=== PATIENT | male | born 1985 | race Asian ===

== ENCOUNTER 2017-08-19 05:55 | Emergency (ER) | payer BC, SELFPAY ==
[2017-08-19 05:56] VITALS: BP 139/92; PULSE 84; RESP 17; TEMP 36.5; O2SAT 100; BMI 19.0
--- NOTE | 2017-08-19 06:17 | RAD_ITS ---
STUDY: X-RAY CHEST REASON FOR EXAM: Male, 31 years old. Chest pain TECHNIQUE: PA and lateral COMPARISON: August 13, 2017 FINDINGS: The lungs are clear and expanded. There is no demonstrated pleural abnormality. Normal size heart. Normal mediastinum and jo. Normal visualized pulmonary arteries. Normal visualized aortic arch and descending thoracic aorta. Normal visualized thoracic spine. Normal visualized ribs, clavicles, and shoulders. There is no demonstrated abnormality of the visualized soft tissue structures of the upper abdomen. RAD/Chest PA and Lateral IMPRESSION: Normal x-ray examination of the chest. Electronically Signed: Mauricio Rajput MD at 7:07 EST , Service support ,
--- NOTE | 2017-08-19 06:17 | EKG12_ITS ---
Test Reason : CP Blood Pressure : / mmHG Vent. Rate : 084 BPM Atrial Rate : 084 BPM P-R Int : 170 ms QRS Dur : 088 ms QT Int : 344 ms P-R-T Axes : 076 078 060 degrees QTc Int : 406 ms Normal sinus rhythm ST segment abnormality: consider repolarization variant; pericarditis Confirmed by JOI TORRES, MARLIN ([id number]), editorial clerk DEON BLACKBURN ([id number] on 08/22/2017 11:20:05 AM Referred By: Confirmed By:MARLIN TAMEZ MD
--- NOTE | 2017-08-19 06:21 | ED.DCSUM_ITS ---
- ER Visit Summary Date of Service: 08/19/17 Chief Complaint: [Chest pain] History of Present Illness: The patient is a 31 M [who presents the emergency department with chest pain for the last for 5 days. It has been continuous over the last 2 days. He was seen here on Saturday with it and was discharged home. He continues to have the pain in this morning he states it was unbearable. It is in his left chest it does not go anywhere else. He has no associated shortness of breath no fever no cough it is worse when leaning forward. He does smoke he does drink on known amount of vodka daily. He has no other medical problems he is followed by Dr. Ferreira he rates the pain as a 7 or 8 out of 10 right now. He is not lightheaded and dizzy and not any recent upper respiratory infections Physical Examination: [] Blood pressure 139/92 other vitals within normal limits WN WD NAD PERRL EOMI MMM NECK supple and nontender, no masses RRR no murmur rub or gallop, no peripheral edema, symmetric radial pulses CTAB no respiratory distress ABDOMEN is soft and nontender, normal bowel sounds, no distension, no rebound or guarding SKIN is warm and dry no rashes Alert and Oriented x3, CN II-XII in tact, no motor or sensory deficits, gait normal No lymphadenopathy Test Results: [] Emergency Department Course and Treatment: [EKG is sinus at a rate of 84 with benign-appearing upsloping ST elevation in diffuse leads. D-dimer is normal troponin is normal workup is otherwise unremarkable. Do think this represents noncardiac chest pain. There is no evidence of acute emergent cause at this time. I gave the patient careful precautions for which she return and he will follow-up with his primary care doctor] Treatment Plan: [] Disposition: [disCharge] Impression: [Chest pain] This note was generated with [employer] dictation software. It may contain incorrect words, spelling, and punctuation that were not noted in review of the chart prior to signing ED Disposition - Plan for ED Patient: Disposition: Home or Assisted Living Chief Complaint: Chest Pain Instructions: ED Chest Pain Atypical Unkn Cause Prescriptions: Omeprazole 20 mg PO DAILY #30 tablet. Referrals: Jaylen Hoyt MD [Primary Care Provider] - 3-5 Days Additional Instructions: avoid alcohol
[2017-08-19 06:37] LABS: Absolute Lymphocyte Count 3.02 X10^3/ul (0.83-4.51); Basophil# 0.02 X10^3/uL; Basophil% 0.3 % (0-1); Hematocrit 44.7 % (40-54); Hemoglobin 15.8 g/dl (13.0-16.5); Lymphocyte # 3.02 X10^3/ul (4.0); Lymphocyte % 44.6 % (19-41); Mean Corp Hgb Conc 35.3 g/gl (32-36); Mean Corpuscular Hgb 31.9 pg (27.0-32.0); Mean Corpuscular Volume 90.3 fL (80-94); Mean Platelet Vol. 9.1 fl (6.2-12.0); Monocyte# 0.52 X10^3/uL; Monocyte% 7.7 % (0-10); Neutrophil % 44.3 % (47-70); Platelet Count 221 K/mm3 (150-450); RBC Distribution Width CV 11.8 % (11.6-14.6); RBC Distribution Width SD 38.6 fl (35.1-43.9); Red Blood Count 4.95 M/mm3 (4.6-6.2); White Blood Count 6.8 K/mm3 (4.4-11.0)
[2017-08-19 06:43] LABS: Anion Gap 10 (5-15); BUN 23 mg/dL (7-18); Calcium,Total 8.1 mg/dL (8.5-10.1); Chloride 108 mmol/L (98-107); Creatinine, Serum 0.85 mg/dL (0.70-1.30); EST Glomerular Filtration Rate 112 mL/min (>60); Est Glom Filt Rate - Afr Amer 135 mL/min (>60); Estimated Creatinine Clearance 90.23 ml/min; Glucose 117 mg/dL (70-110); Potassium 3.8 mmol/L (3.5-5.1); Sodium Level 142 mmol/L (136-145)
[2017-08-19 06:46] VITALS: O2SAT 100
[2017-08-19] MEDS: Ketorolac 30 MG/ML Syringe IV (06:46)
[2017-08-19] MEDS: Mag Hydrox/Al Hydrox/Simeth 30 ML UDC PO (06:49)
[2017-08-19 06:52] VITALS: BP 134/80; PULSE 94; RESP 15; O2SAT 99
[2017-08-19 07:01] VITALS: PULSE 106; RESP 14; O2SAT 100
[2017-08-19 07:16] LABS: D-Dimer Quantitative (DVT/PE) < 0.27 FEU/ug/m (0.27-0.49)
[2017-08-19 07:25] LABS: POSITIVE COUNT NO; POSITIVE DIFFERENTIAL NO; POSITIVE MORPHOLOGY NO
--- NOTE | 2017-08-19 07:36 | ED.DEP ---
ED Disposition - Plan for ED Patient: Chief Complaint: Chest Pain Instructions: ED Chest Pain Atypical Unkn Cause Prescriptions: Omeprazole 20 mg PO DAILY #30 tablet. Referrals: Jaylen Hoyt MD [Primary Care Provider] - 3-5 Days Additional Instructions: avoid alcohol
[2017-08-19 07:49] LABS: Erythrocyte Sedimentation Rate 1 mm/hr (0-15)
[2017-08-19 07:57] VITALS: BP 127/69; PULSE 74; RESP 16; O2SAT 99
== END 2017-08-19 07:58 | disposition home or self-care (01) ==
LOC: ED 06:39
PROVIDERS: Emergency Provider Emergency Medicine; Family Provider Family Medicine; PCP Family Medicine
DX: R07.9 Chest pain, unspecified (principal); Z72.89 Other problems related to lifestyle; Z72.0 Tobacco use
CPT/HCPCS: 71046; 80048; 84484; 85025; 85379; 85652; 93005; 96374; 99285

== ENCOUNTER 2022-02-13 14:28 | Emergency (ER) | payer BC, SELFPAY ==
[2022-02-13 14:30] VITALS: BP 138/90; PULSE 120; RESP 16; TEMP 38.1; O2SAT 96; BMI 18.9
[2022-02-13 14:33] VITALS: BP 138/90; PULSE 120; RESP 16; TEMP 38.1; O2SAT 96
--- NOTE | 2022-02-13 15:15 | ED.VIS.GI ---
HPI HPI - GI History of Present Illness Chief Complaint: Diarrhea Informant: patient Abdominal Pain/Flank Pain Onset: Yesterday Context: Gradual Onset Timing: Continuous Quality: - (Pressure) Location: RLQ and LLQ Worsened by: Nothing Relieved by: Nothing Nausea/Vomiting/Emesis GI Symptom: Negative for Nausea or Vomiting Diarrhea/Melena/Hematochezia GI Symptom: Positive for Diarrhea; Negative for Melena or Hematochezia Associated Symptoms Associated Symptoms: Negative for Dysuria, Frequency or Hematuria Narrative Narrative: Patient presents with diarrhea that has been constant for the past 2 weeks. Patient states he was diagnosed with C. difficile 2 weeks ago and was started on antibiotics at that time. Patient states that he has been noncompliant with his antibiotics. Patient states he started taking the antibiotics initially but then missed several doses. Patient states he recently restarted his antibiotics with no improvement of his diarrhea. Patient admits to body aches and muscle aches. Patient admits to low-grade fever and chills. Patient denies any nausea or vomiting. Patient admits to some pressure in his lower abdomen. Patient denies any urinary complaints. PFSH PFSH Home Medications vancomycin 125 mg capsule (Vancocin) 125 mg PO Q6H #4 caps 02/13/22 [Rx Last Taken Unknown] Allergy/AdvReac Type Severity Reaction Status Date / Time No Known Allergies Allergy Verified 02/13/22 14:33 Surgical History (Updated 02/13/22 @ 15:[address] Pravin Su DO) History of repair of congenital cleft palate History of tympanoplasty Social History Smoking Status: Current every day smoker tobacco type: cigarettes ROS ROS ED Constitutional Constitutional ED: Reports chills and fever(s) Eyes Eyes: Denies blurry vision or change in vision ENT ENT ED: Denies rhinorrhea or sore throat Cardiovascular Cardiovascular: Denies chest pain or palpitations Respiratory/Chest Respiratory/Chest: Denies cough or dyspnea Gastrointestinal Gastrointestinal: Reports abdominal pain and diarrhea; Denies nausea or vomiting Genitourinary Genitourinary ED: Denies dysuria or hematuria Musculoskeletal Musculoskeletal: Reports back pain and myalgias Integumentary Denies abscess or rash Neurologic Neurologic: Denies headache(s) or weakness Allergic/Immunologic Allergic/Immunologic ED: Denies mouth swelling or urticaria EXAM Physical Exam Const Vital Signs: 02/13/22 14:30 02/13/22 14:33 Temperature 100.6 F H 100.6 F H Temperature Source Temporal Temporal Pulse Rate 120 H 120 H Respiratory Rate 16 16 Blood Pressure 138/90 H 138/90 H Blood Pressure Mean 106 Pulse Ox 96 96 Oxygen Delivery Method Room Air Room Air Positive well nourished and well developed General Appearance ED: well developed and NAD HEENT Reports moist mucous membranes Neck supple and no JVD Resp normal respiratory effort and clear to auscultation bilaterally Cardio regular rate, regular rhythm and no murmurs GI normal to inspection, nondistended, normoactive bowel sounds Palpation: soft and tender LLQ, RLQ and suprapubic; Negative for guarding or rebound tenderness present Extremity normal to inspection General Extremety ED: Negative for edema or tenderness General Extremity: Negative for edema Neuro oriented x3, CN's II-XII intact bilaterally and no sensory deficits noted Sensorium / Orientation: alert Motor Exam: strength 5/5 throughout Psych mental status grossly normal Skin no rashes or lesions noted MDM MDM MDM Narrative Medical decision making narrative: Patient was given IV fluids. Patient was given a dose of p.o. vancomycin here. CBC shows a white blood cell count of 3.3. Platelets were slightly low at 147. Comprehensive metabolic profile was within normal limits. Urinalysis does not show any evidence of urinary tract infection. Patient was given a prescription for 24 hours worth of p.o. vancomycin. Patient has an appoint with his primary care physician tomorrow. Patient was instructed to follow-up with this as scheduled. Patient understood and was agreeable with the plan. All questions were answered. Lab Data Attestation: I reviewed the patient's lab results. Labs: Laboratory Results - last 24 hr 02/13/22 02/13/22 02/13/22 15:45 15:45 15:55 WBC 3.3 L RBC 4.84 Hgb 15.0 Hct 42.8 MCV 88.4 MCH 31.0 MCHC 35.0 RDW Std Deviation 36.7 RDW Coeff of Arnold 11.5 L Plt Count 147 L MPV 9.2 Immature Gran % (Auto) 0.300 Neut % (Auto) 65.6 Lymph % (Auto) 16.0 L [place] % (Auto) 17.2 H Eos % (Auto) 0.6 Baso % (Auto) 0.3 Absolute Neuts (auto) 2.1 Absolute Lymphs (auto) 0.52 L Nucleated RBC % 0 Differential Comment SEE COMMENT Diff Path Review May foll Platelet Estimate ADEQUATE RBC Morphology N CHROM Anisocytosis RARE Sodium 137 Potassium 3.8 Chloride 105 Carbon Dioxide 26.0 Anion Gap 6 BUN 16 Creatinine 1.10 Estim Creat Clear Calc 64.34 Est GFR (MDRD) Af Amer 98 Est GFR (MDRD) Non-Af 81 BUN/Creatinine Ratio 14.5 Glucose 95 Calcium 8.7 Total Bilirubin 0.30 AST 28 ALT 51 Alkaline Phosphatase 85 Total Protein 6.7 Albumin 3.8 Globulin 2.9 Albumin/Globulin Ratio 1.3 Urine Color Yellow Urine Clarity Sl. Cloudy Urine pH 6.5 Ur Specific [place] 1.020 Urine Protein 15 H Urine Glucose (UA) Normal Urine Ketones Negative Urine Occult Blood Negative Urine Nitrite Negative Urine Bilirubin Negative Urine Urobilinogen Normal Ur Leukocyte Esterase Negative Urine RBC 0 SEEN Urine WBC 0-5 SEEN Ur Squamous Epith Cells 0 SEEN Urine Bacteria 2+ Urine Mucus 0 SEEN Discharge Plan Triage Chief Complaint: Diarrhea ED Provider: Pravin Su Dx/Rx/DC Orders Clinical Impression: Diarrhea, History of Clostridium difficile infection Instructions: Clostridium Difficile Infection, ED Diarrhea, Bacterial (Adult) Prescriptions: New vancomycin [Vancocin] 125 mg capsule 125 mg PO Q6H Qty: 4 0RF Primary Care Provider: Jaylen Hoyt Referrals: Jaylen Hoyt MD [Primary Care Provider] - [facility] appointment Disposition Disposition: Home, Self Care
[2022-02-13] MEDS: 0.9% Normal Saline 1,000 ML 1000 ML IV (15:47)
[2022-02-13 16:06] LABS: Mucous, Urine 0 SEEN /hpf (<or=2+); Red Blood Cells-Urine 0 SEEN /hpf (0-5); Squamous Epithelial Cells - UA 0 SEEN /hpf (0-5)
[2022-02-13 16:11] LABS: ALB/GLOB Ratio 1.3 RATIO (0.9-2.4); AST(SGOT) 28 U/L (15-37); Alanine Aminotransfer ALT/SGPT 51 U/L (16-61); Albumin, Serum 3.8 g/dL (3.2-5.0); Alkaline Phosphatase 85 U/L (45-117); Anion Gap 6 (5-15); BUN 16 mg/dL (7-18); BUN/Creat Ratio 14.5 RATIO (10-20); Calcium,Total 8.7 mg/dL (8.5-10.1); Chloride 105 mmol/L (98-107); EST Glomerular Filtration Rate 81 mL/min (>60); Est Glom Filt Rate - Afr Amer 98 mL/min (>60); Estimated Creatinine Clearance 64.34 ml/min; Globulin 2.9 g/dL (2.2-4.2); Glucose 95 mg/dL (74-106); Potassium 3.8 mmol/L (3.5-5.1); Protein, Total 6.7 g/dL (6.4-8.2); Sodium Level 137 mmol/L (136-145)
[2022-02-13 16:12] LABS: Absolute Lymphocyte Count 0.52 X10^3/uL (0.83-4.51); Absolute Neutrophil Count 2.1 X10^3/uL (2.0-7.7); Basophil# 0.01 X10^3/uL; Basophil% 0.3 % (0-1); Eosinophil# 0.02 X10^3/uL; Eosinophils% 0.6 % (0-5); Hematocrit 42.8 % (40-54); Lymphocyte # 0.52 X10^3/ul (0.83-4.51); Mean Corpuscular Volume 88.4 fL (80-94); Mean Platelet Vol. 9.2 fl (6.2-12.0); Monocyte# 0.56 X10^3/uL; Monocyte% 17.2 % (0-10); NRBC Flagged by Analyzer 0 % (0-5); Neutrophil # 2.13 X10^3/uL (2.7-7.7); Neutrophil % 65.6 % (47-70); POSITIVE DIFFERENTIAL YES; Platelet Count 147 K/mm3 (150-450); RBC Distribution Width CV 11.5 % (11.6-14.6); RBC Distribution Width SD 36.7 fl (35.1-43.9); Red Blood Count 4.84 M/mm3 (4.6-6.2); White Blood Count 3.3 K/mm3 (4.4-11.0)
[2022-02-13] MEDS: Vancomycin HCl 250 MG Capsule 500 MG PO (16:14)
[2022-02-13 16:15] LABS: Color, Urine Yellow (Yellow); Glucose, Dipstick Normal (Normal); Ketone-Dipstick Negative (Negative); Leukocyte Esterase-Dipstick Negative /ul (Negative); Nitrite-Dipstick Negative (Negative); Occult Blood-Urine Negative /ul (Negative); Protein-Dipstick 15 mg/dl (Negative); Urine Bilirubin Dipstick Negative (Negative); Urine Clarity Sl. Cloudy (Clear); Urine Urobilinogen Normal (Normal); Urine pH 6.5 (5.0 - 8.0)
[2022-02-13 16:41] LABS: Differential Indicated SCAN CRITERIA MET
[2022-02-13 16:42] LABS: Anisocytosis RARE; Platelet Estimate ADEQUATE (ADEQ); Red Cell Morphology N CHROM NORMAL (NORM C&C)
[2022-02-13 16:46] LABS: Bacteria 2+ /hpf (None Seen); White Blood Cells 0-5 SEEN /hpf (0-5)
[2022-02-13 17:25] VITALS: BP 132/88; PULSE 69; RESP 19; O2SAT 97
[2022-02-14 10:53] LABS: Pathologist Review Reviewed
== END 2022-02-13 17:25 | disposition home or self-care (01) ==
PROVIDERS: Emergency Provider Emergency Medicine; PCP Family Medicine; Visit Provider Emergency Medicine
DX: R19.7 Diarrhea, unspecified (principal); R10.9 Unspecified abdominal pain; Z91.14 Patient's other noncompliance with medication regimen; M79.10 Myalgia, unspecified site; R50.9 Fever, unspecified; F17.210 Nicotine dependence, cigarettes, uncomplicated; Z86.19 Personal history of other infectious and parasitic diseases
CPT/HCPCS: 80053; 81001; 85025; 96360; 99284; J7030; A4216

== ENCOUNTER 2022-02-28 13:54 | Emergency (ER) | payer BC, SELFPAY ==
[2022-02-28 13:55] VITALS: BP 132/95; PULSE 84; RESP 16; TEMP 36.7; O2SAT 99; BMI 18.9
--- NOTE | 2022-02-28 14:10 | CT_ITS ---
STUDY: CT ABDOMEN AND PELVIS WITH CONTRAST REASON FOR EXAM: Male, 36 years old. llq abd pain -- IV PO Contrast, recent c diff RADIATION DOSAGE (If Supplied By Facility): CTDIvol = ( 12.98 ) mGy, DLP = ( 275.06 ) mGycm TECHNIQUE: Transaxial images were obtained from the dome of the diaphragm to the symphysis pubis without oral contrast. Oral and amp; IV Gastrografin and amp; 100mL Isovue-370 was administered. Sagittal and coronal images were reconstructed. Individualized dose optimization techniques were used for this CT. COMPARISON: 08/23/2015 FINDINGS: The visualized lung bases are unremarkable. The visualized portions of the heart are within normal limits. Normal-sized liver. Tiny cyst in the right lobe. Bile ducts are nondilated. Contracted thick-walled gallbladder without calcified stones possibly physiologic. If concern for gallbladder disease ultrasound recommended. Normal spleen. Normal pancreas. Normal bilateral adrenal glands. Normal right kidney. Normal left kidney. Normal visualized stomach. Mild nonspecific ileus with diffuse fecal retention throughout the colon.. No evidence for acute appendicitis. Normal abdominal aorta. Normal inferior vena cava. Normal retroperitoneum. Incompletely distended thick-walled bladder in association with nonspecific enlargement of prostate and seminal vesicles. Normal abdominal wall. Normal osseous structures. CT/Abdomen/Pelvis WITH Contrast IMPRESSION: Mild ileus with diffuse fecal retention in the colon. No evidence for small bowel obstruction No definitive evidence for acute inflammatory bowel disease at this time Mildly enlarged prostate and seminal vesicles not atypical for patient of this age although could represent prostatitis. Clinical correlation recommended in this regard Electronically Signed: Jaylen Macdonald MD at 16:54 EDT ,
--- NOTE | 2022-02-28 14:12 | ED.VIS.GI ---
HPI HPI - GI History of Present Illness Chief Complaint: Abd Pain Informant: patient Narrative Narrative: Patient presenting reporting left lower quadrant abdominal pain starting today with nausea. Denies fevers chills or sweats. Recent diagnosis of C. difficile infection. He was seen 2 weeks ago in the ED for persistent diarrhea and was noncompliant with his vancomycin at that time. Was diagnosed as an outpatient. He followed up and was represcribed vancomycin for 10 days for which she finished 2 days ago. Stools now forming however not back tolerating oral fluids. Today increasing nausea with left lower quadrant abdominal pain. Denies urinary symptoms. No C. difficile infections in the past. No abdominal surgeries. He has a follow-up with GI that is planned. [facility] Medical History History of Clostridium difficile infection Home Medications vancomycin 125 mg capsule (Vancocin) 125 mg PO Q6H #4 caps 02/13/22 [Rx Last Taken Unknown] ondansetron 4 mg disintegrating tablet 4 mg PO Q6H PRN nausea and vomiting #10 tabs 02/28/22 [Rx Last Taken Unknown] Allergy/AdvReac Type Severity Reaction Status Date / Time No Known Allergies Allergy Verified 02/28/22 13:58 Surgical History History of repair of congenital cleft palate History of tympanoplasty Social History Smoking Status: Current every day smoker tobacco type: cigarettes ROS ROS ED Constitutional Constitutional ED: Denies chills, fever(s) or sweats Eyes Eyes: Denies change in vision ENT ENT ED: Denies dysphagia or sore throat Cardiovascular Cardiovascular: Denies chest pain, leg edema, palpitations or racing heartbeat Respiratory/Chest Respiratory/Chest: Denies cough, dyspnea or dyspnea on exertion Gastrointestinal Gastrointestinal: Reports abdominal pain and nausea; Denies diarrhea or vomiting Genitourinary Genitourinary ED: Denies dysuria, hematuria or urinary frequency Musculoskeletal Musculoskeletal: Denies back pain, extremity pain or neck pain Integumentary Denies rash or wounds Neurologic Neurologic: Denies headache(s), paresthesias or weakness EXAM Physical Exam Const Vital Signs: 02/28/22 13:55 02/28/22 17:29 Temperature 98.1 F Temperature Source Temporal Pulse Rate 84 81 Respiratory Rate 16 15 Blood Pressure 132/95 H 117/85 H Blood Pressure Mean 107 Pulse Ox 99 98 Oxygen Delivery Method Room Air Positive well nourished and well developed General Appearance ED: well developed and NAD HEENT Reports moist mucous membranes normocephalic and atraumatic Eyes PERRL, EOMs intact bilaterally and conjunctivae normal General Eye ED: Yes normal appearance of both eyes Neck no lymphadenopathy and supple General: Negative for tenderness Chest Wall Chest: Negative for tenderness Resp normal respiratory effort and normal air movement Effort and Inspection: symmetric chest movement; Negative for respiratory distress Cardio regular rate, regular rhythm and no murmurs Peripheral Pulses: pulses 2+ throughout GI normal to inspection, nondistended, normoactive bowel sounds GI Narrative: Tender deep palpation left lower quadrant no guarding or rebound. Negative Oliveros's or McBurney's tenderness. Palpation: Negative for guarding or rebound tenderness present Back/Spine no CVA tenderness and no thoracic nor lumbar tenderness Extremity normal to inspection General Extremety ED: Negative for edema or tenderness General Extremity: Negative for edema Neuro oriented x3 and no sensory deficits noted Sensorium / Orientation: awake and alert Skin no rashes or lesions noted and no wounds MDM MDM MDM Narrative Medical decision making narrative: Patient nontoxic. Primary complaint is nausea, however had pain with deep palpation left lower quadrant. He reports now forming stools after his treatment for C. difficile however not back to normal. Denies fevers. IV fluids Zofran was given. Abdominal labs all normal white count 5.6. CT abdomen pelvis with p.o. and IV contrast obtained. Shows no inflammatory findings. Nonspecific ileus was noted with fecal retention. He was tolerating p.o. intake on reevaluation. Abdomen soft on reevaluation. Also reported mildly large prostate not atypical for patient's age reporting possible prostatitis, however he denies any urinary symptoms denies any pain with bowel movements. Clinically suspicion is not there. Discussed with patient continue oral fluids for hydration currently. He will monitor for any worsening symptoms. Prescription for Zofran to use as needed. Follow-up with his PCP. Return precautions. All questions were answered. Lab Data Attestation: I reviewed the patient's lab results. Labs: Laboratory Results - last 24 hr 02/28/22 02/28/22 14:20 14:20 WBC 5.6 RBC 5.18 Hgb 15.9 Hct 46.2 MCV 89.2 MCH 30.7 MCHC 34.4 RDW Std Deviation 36.0 RDW Coeff of Arnold 11.1 L Plt Count 248 MPV 9.0 Immature Gran % (Auto) 0.400 Neut % (Auto) 48.4 Lymph % (Auto) 40.7 [place] % (Auto) 9.5 Eos % (Auto) 0.5 Baso % (Auto) 0.5 Absolute Neuts (auto) 2.7 Absolute Lymphs (auto) 2.26 Nucleated RBC % 0 Sodium 142 Potassium 4.0 Chloride 108 H Carbon Dioxide 28.0 Anion Gap 6 BUN 20 H Creatinine 0.95 Estim Creat Clear Calc 74.50 Est GFR (MDRD) Af Amer 116 Est GFR (MDRD) Non-Af 96 BUN/Creatinine Ratio 21.0 H Glucose 108 H Calcium 8.9 Total Bilirubin 0.40 AST 19 ALT 40 Alkaline Phosphatase 109 Total Protein 7.0 Albumin 3.9 Globulin 3.1 Albumin/Globulin Ratio 1.3 Lipase 123 Radiography Diagnostic Testing: Clinical Impression(s) from Imaging Studies Abdomen/Pelvis CT 02/28/22 14:10 IMPRESSION: Mild ileus with diffuse fecal retention in the colon. No evidence for small bowel obstruction No definitive evidence for acute inflammatory bowel disease at this time Mildly enlarged prostate and seminal vesicles not atypical for patient of this age although could represent prostatitis. Clinical correlation recommended in this regard Electronically Signed: Jaylen Macdonald MD at 16:54 EDT Reading Location ID and State: [address] [place] [address] , Service support , Discharge Plan Triage Chief Complaint: Abd Pain Other Complaint: Nausea/Vomiting ED Provider: Gaurav Quiroga Dx/Rx/DC Orders Clinical Impression: Abdominal pain, History of Clostridioides difficile infection, Nausea Instructions: Abdominal Pain Prescriptions: New ondansetron 4 mg tablet,disintegrating 4 mg PO Q6H PRN (Reason: nausea and vomiting) Qty: 10 0RF No Action vancomycin [Vancocin] 125 mg capsule 125 mg PO Q6H Qty: 4 0RF Primary Care Provider: Jaylen Hoyt Referrals: Jaylen Hoyt MD [Primary Care Provider] - 3-5 Days if not improving Activity Restrictions/Additional Instructions: CT scan abdomen pelvis shows no signs of inflammation. Continue oral fluids at home. Take nausea medicines as needed. Follow-up with your doctor. Return if any worsening symptoms. Disposition Disposition: Home, Self Care Discharge Date/Time: 02/28/22 17:30
[2022-02-28 14:29] LABS: Absolute Lymphocyte Count 2.26 X10^3/uL (0.83-4.51); Absolute Neutrophil Count 2.7 X10^3/uL (2.0-7.7); Basophil# 0.03 X10^3/uL; Basophil% 0.5 % (0-1); Eosinophil# 0.03 X10^3/uL; Eosinophils% 0.5 % (0-5); Hematocrit 46.2 % (40-54); Hemoglobin 15.9 g/dL (13.0-16.5); Lymphocyte # 2.26 X10^3/ul (0.83-4.51); Lymphocyte % 40.7 % (19-41); Mean Corp Hgb Conc 34.4 g/dL (32-36); Mean Corpuscular Hgb 30.7 pg (27.0-32.0); Mean Corpuscular Volume 89.2 fL (80-94); Monocyte# 0.53 X10^3/uL; Monocyte% 9.5 % (0-10); NRBC Flagged by Analyzer 0 % (0-5); Neutrophil # 2.68 X10^3/uL (2.7-7.7); Neutrophil % 48.4 % (47-70); Platelet Count 248 K/mm3 (150-450); RBC Distribution Width CV 11.1 % (11.6-14.6); Red Blood Count 5.18 M/mm3 (4.6-6.2); White Blood Count 5.6 K/mm3 (4.4-11.0)
[2022-02-28] MEDS: 0.9% Normal Saline 1,000 ML 1000 ML IV (14:39)
[2022-02-28] MEDS: Ondansetron 4 MG/2 ML Vial IV (14:39)
[2022-02-28 14:46] LABS: ALB/GLOB Ratio 1.3 RATIO (0.9-2.4); AST(SGOT) 19 U/L (15-37); Alanine Aminotransfer ALT/SGPT 40 U/L (16-61); Albumin, Serum 3.9 g/dL (3.2-5.0); Alkaline Phosphatase 109 U/L (45-117); Anion Gap 6 (5-15); BUN 20 mg/dL (7-18); Calcium,Total 8.9 mg/dL (8.5-10.1); Chloride 108 mmol/L (98-107); Creatinine, Serum 0.95 mg/dL (0.70-1.30); EST Glomerular Filtration Rate 96 mL/min (>60); Est Glom Filt Rate - Afr Amer 116 mL/min (>60); Globulin 3.1 g/dL (2.2-4.2); Glucose 108 mg/dL (74-106); Lipase 123 U/L (73-393); Sodium Level 142 mmol/L (136-145)
[2022-02-28 17:29] VITALS: BP 117/85; PULSE 81; RESP 15; O2SAT 98
== END 2022-02-28 17:30 | disposition home or self-care (01) ==
PROVIDERS: Emergency Provider Emergency Medicine; PCP Family Medicine; Visit Provider Emergency Medicine
DX: R10.32 Left lower quadrant pain (principal); K56.7 Ileus, unspecified; R11.2 Nausea with vomiting, unspecified; F17.210 Nicotine dependence, cigarettes, uncomplicated
CPT/HCPCS: 74177; 80053; 83690; 85025; 96361; 96374; 99283; J7030; Q9967; J2405

== ENCOUNTER 2022-05-18 17:59 | Emergency (ER) | payer SELFPAY ==
[2022-05-18 18:02] VITALS: BP 156/93; PULSE 81; RESP 18; TEMP 36.1; O2SAT 100; BMI 19.3
--- NOTE | 2022-05-18 18:23 | US_ITS ---
STUDY: SCROTUM ULTRASOUND REASON FOR EXAM: Male, 36 years old. left testicle pain TECHNIQUE: Ultrasound evaluation of the scrotum was performed with color Doppler and static de luna-scale imaging. COMPARISON: None. FINDINGS: RIGHT TESTICLE INTRATESTICULAR: There is a normal size of the right testicle. The right testicle measures 4.1 x 3.2 x 1.7 cm. There is a homogenous echotexture. There is normal arterial and normal venous vascularity. There is no demonstrated right testicular mass or cyst. EXTRATESTICULAR: The epididymis is normal in size. The epididymis head measures 0.9 x 0.6 x 0.7 cm. There is normal vascularity of the epididymis. There is no demonstrated epididymal cystic structure. There is a small hydrocele. There is no demonstrated varicocele. There is no demonstrated extratesticular mass or cyst. LEFT TESTICLE INTRATESTICULAR: There is a normal size of the left testicle. The left testicle measures 4.1 x 2.6 x 1.6 cm. There is a homogenous echotexture. There is normal arterial and normal venous vascularity. There is no demonstrated left testicular mass or cyst. EXTRATESTICULAR: The epididymis is normal in size. The epididymis head measures 0.9 x 0.7 x 0.8 cm. There is normal vascularity of the epididymis. There is no demonstrated epididymal cystic structure. There is a small hydrocele. There is no demonstrated varicocele. There is no demonstrated extratesticular mass or cyst. US/Testicular with Arterial Flow IMPRESSION: Normal bilateral testicles. Electronically Signed: Christo Wagner MD at 20:10 EDT ,
--- NOTE | 2022-05-18 18:25 | EX.ED.DYSGE1 ---
HPI History of Present Illness Chief Complaint: Numb/Ting Informant: patient Narrative Narrative: Patient presents with complaint of numbness over the back of his hands bilaterally. He states it was like that when he woke this morning. He has no weakness. His fingers feel fine and the palm of his hands feel fine. He also complains of left testicle pain for the last week or more. He was seen and tested for gonorrhea and chlamydia which were negative. He was referred to urology but has not yet made that appointment. [facility] Medical History History of Clostridium difficile infection Home Medications vancomycin 125 mg capsule (Vancocin) 125 mg PO Q6H #4 caps 02/13/22 [Rx Last Taken Unknown] ondansetron 4 mg disintegrating tablet 4 mg PO Q6H PRN nausea and vomiting #10 tabs 02/28/22 [Rx Last Taken Unknown] Allergy/AdvReac Type Severity Reaction Status Date / Time No Known Allergies Allergy Verified 05/18/22 18:00 Surgical History History of repair of congenital cleft palate History of tympanoplasty Social History Smoking Status: Current every day smoker tobacco type: cigarettes ROS ROS ED Constitutional Constitutional ED: Denies chills or fever(s) Eyes Eyes: Denies change in vision or discharge from eye(s) ENT ENT ED: Denies discharge from eye(s), rhinorrhea or sore throat Cardiovascular Cardiovascular: Denies chest pain or palpitations Respiratory/Chest Respiratory/Chest: Denies cough or dyspnea Gastrointestinal Gastrointestinal: Denies abdominal pain, diarrhea, nausea or vomiting Genitourinary Genitourinary ED: Reports other Details: Left testicular pain ; Denies difficulty urinating or dysuria Musculoskeletal Musculoskeletal: Denies back pain or extremity pain Integumentary Denies Abrasions or rash Neurologic Neurologic: Reports paresthesias; Denies headache(s) or weakness Psychiatric Psychiatric: Denies anxiety or depression Allergic/Immunologic Allergic/Immunologic ED: Denies lip swelling or urticaria EXAM Physical Exam Const Vital Signs: 05/18/22 18:02 05/18/22 20:31 Temperature 96.9 F L Temperature Source Temporal Pulse Rate 81 Respiratory Rate 18 18 Blood Pressure 156/93 H Blood Pressure Mean 114 Pulse Ox 100 Oxygen Delivery Method Room Air Positive well nourished and well developed General Appearance ED: well developed HEENT Reports normocephalic and head/scalp atraumatic Eyes PERRL and EOMs intact bilaterally Neck supple Chest Wall inspection of chest normal and palpation of chest normal Resp normal respiratory effort and clear to auscultation bilaterally Cardio regular rate and regular rhythm GI normal to inspection, nondistended, normoactive bowel sounds Palpation: soft Narrative: Minimal tenderness to the left testicle. No scrotal edema or erythema. No palpable masses. No discharge or lesions noted. Extremity normal to inspection Neuro oriented x3 and no sensory deficits noted Sensorium / Orientation: alert Motor Exam: strength 5/5 throughout Psych mental status grossly normal Skin no rashes or lesions noted MDM MDM MDM Narrative Medical decision making narrative: Lab work obtained. Urinalysis and testicular ultrasound ordered. Lab Data Attestation: I reviewed the patient's lab results. Labs: Laboratory Results - last 24 hr 05/18/22 05/18/22 05/18/22 18:35 18:35 18:35 WBC 7.4 RBC 5.38 Hgb 16.9 H Hct 47.0 MCV 87.4 MCH 31.4 MCHC 36.0 RDW Std Deviation 35.5 RDW Coeff of Arnold 11.1 L Plt Count 199 MPV 8.5 Immature Gran % (Auto) 0.300 Neut % (Auto) 54.7 Lymph % (Auto) 36.6 [place] % (Auto) 5.9 Eos % (Auto) 2.2 Baso % (Auto) 0.3 Absolute Neuts (auto) 4.1 Absolute Lymphs (auto) 2.72 Nucleated RBC % 0 Sodium 141 Potassium 3.4 L Chloride 106 Carbon Dioxide 29.0 Anion Gap 6 BUN 15 Creatinine 0.97 Estim Creat Clear Calc 72.16 Est GFR (MDRD) Af Amer 112 Est GFR (MDRD) Non-Af 93 BUN/Creatinine Ratio 15.4 Glucose 93 Calcium 9.2 Magnesium 2.2 Urine Color Straw Urine Clarity Cloudy Urine pH 7.0 Ur Specific [place] 1.015 Urine Protein Negative Urine Glucose (UA) Normal Urine Ketones Negative Urine Occult Blood Negative Urine Nitrite Negative Urine Bilirubin Negative Urine Urobilinogen Normal Ur Leukocyte Esterase Negative Urine RBC 0 SEEN Urine WBC 0 SEEN Ur Squamous Epith Cells 0 SEEN Amorphous Sediment 3+ Urine Bacteria 0 SEEN Urine Mucus 0 SEEN Radiography Diagnostic Testing: Clinical Impression(s) from Imaging Studies Testicular Ultrasound 05/18/22 18:23 IMPRESSION: Normal bilateral testicles. Electronically Signed: Christo Wagner MD at 20:10 EDT Reading Location ID and State: [facility] / [place] Tel , Service support , Treatment and Re-Evaluation Narrative: CBC is remarkable only for hemoglobin concentrated at 16.9. Chemistry studies reveal slightly low potassium at 3.4. Urinalysis reveals 3+ amorphous sediment, no acute infection or crystals noted. Testicular ultrasound reveals normal bilateral testicles. Test results are discussed with the patient. He was given a dose of oral potassium here for replacement. He has an appointment to see urology on 25 May. Return instructions are provided. Discharge Plan Triage Chief Complaint: Numb/Ting ED Provider: Sherrill Roman Dx/Rx/DC Orders Clinical Impression: Paresthesias, Pain in testicle, Hypokalemia Instructions: ED Paraesthesias, ED Testicular Pain, Unclear Cause Prescriptions: No Action vancomycin [Vancocin] 125 mg capsule 125 mg PO Q6H Qty: 4 0RF ondansetron 4 mg tablet,disintegrating 4 mg PO Q6H PRN (Reason: nausea and vomiting) Qty: 10 0RF Primary Care Provider: Jaylen Hoyt Referrals: Jaylen Hoyt MD [Primary Care Provider] - Activity Restrictions/Additional Instructions: Follow-up with urology on the fourth as scheduled. Disposition Disposition: Home, Self Care
[2022-05-18 18:42] LABS: Bacteria 0 SEEN /hpf (None Seen); Mucous, Urine 0 SEEN /hpf (<or=2+); Red Blood Cells-Urine 0 SEEN /hpf (0-5); Squamous Epithelial Cells - UA 0 SEEN /hpf (0-5); White Blood Cells 0 SEEN /hpf (0-5)
[2022-05-18 18:43] LABS: Absolute Lymphocyte Count 2.72 X10^3/uL (0.83-4.51); Absolute Neutrophil Count 4.1 X10^3/uL (2.0-7.7); Basophil# 0.02 X10^3/uL; Basophil% 0.3 % (0-1); Eosinophil# 0.16 X10^3/uL; Eosinophils% 2.2 % (0-5); Hemoglobin 16.9 g/dL (13.0-16.5); Lymphocyte # 2.72 X10^3/ul (0.83-4.51); Lymphocyte % 36.6 % (19-41); Mean Corpuscular Hgb 31.4 pg (27.0-32.0); Mean Corpuscular Volume 87.4 fL (80-94); Mean Platelet Vol. 8.5 fl (6.2-12.0); Monocyte# 0.44 X10^3/uL; Monocyte% 5.9 % (0-10); NRBC Flagged by Analyzer 0 % (0-5); Neutrophil # 4.08 X10^3/uL (2.7-7.7); Neutrophil % 54.7 % (47-70); Platelet Count 199 K/mm3 (150-450); RBC Distribution Width CV 11.1 % (11.6-14.6); RBC Distribution Width SD 35.5 fl (35.1-43.9); Red Blood Count 5.38 M/mm3 (4.6-6.2); White Blood Count 7.4 K/mm3 (4.4-11.0)
[2022-05-18 18:59] LABS: Anion Gap 6 (5-15); BUN 15 mg/dL (7-18); BUN/Creat Ratio 15.4 RATIO (10-20); Calcium,Total 9.2 mg/dL (8.5-10.1); Chloride 106 mmol/L (98-107); Creatinine, Serum 0.97 mg/dL (0.70-1.30); EST Glomerular Filtration Rate 93 mL/min (>60); Est Glom Filt Rate - Afr Amer 112 mL/min (>60); Estimated Creatinine Clearance 72.16 ml/min; Glucose 93 mg/dL (74-106); Magnesium 2.2 mg/dL (1.6-2.6); Potassium 3.4 mmol/L (3.5-5.1); Sodium Level 141 mmol/L (136-145)
[2022-05-18 19:11] LABS: Color, Urine Straw (Yellow); Glucose, Dipstick Normal (Normal); Ketone-Dipstick Negative (Negative); Leukocyte Esterase-Dipstick Negative /ul (Negative); Nitrite-Dipstick Negative (Negative); Occult Blood-Urine Negative /ul (Negative); Protein-Dipstick Negative (Negative); Specific Gravity, Urine 1.015 (1.002-1.030); Urine Bilirubin Dipstick Negative (Negative); Urine Clarity Cloudy (Clear); Urine Urobilinogen Normal (Normal)
[2022-05-18] MEDS: Potassium Chloride Oral Tablet 20 MEQ 40 MEQ PO (19:21)
[2022-05-18 19:29] LABS: Amorphous Sediment 3+
[2022-05-18 20:31] VITALS: RESP 18
[2022-05-18 20:52] VITALS: RESP 18
== END 2022-05-18 21:02 | disposition home or self-care (01) ==
PROVIDERS: Emergency Provider Emergency Medicine; PCP Family Medicine; Visit Provider Emergency Medicine
DX: R20.2 Paresthesia of skin (principal); N50.812 Left testicular pain; E87.6 Hypokalemia; F17.210 Nicotine dependence, cigarettes, uncomplicated
CPT/HCPCS: 76870; 80048; 81001; 83735; 85025; 93976; 99285; A4216

== ENCOUNTER 2023-03-30 08:02 | Emergency (ER) | payer BC, SELFPAY ==
[2023-03-30 08:02] VITALS: BP 147/94; PULSE 87; RESP 16; TEMP 36.2; O2SAT 100; BMI 21.0
--- NOTE | 2023-03-30 08:10 | RAD_ITS ---
INDICATION: injury EXAMINATION/TECHNIQUE: X-RAY - RIGHT XR Shoulder Min 2 Views 4 VIEWS COMPARISON: FINDINGS: SOFT TISSUES: No soft tissue swelling or gas. No radiopaque foreign body. BONES/JOINTS: No acute fracture or subluxation.. Normal alignment. Preservation of the joint space.. No sclerotic or destructive changes observed. RAD/Shoulder min 2 Views IMPRESSION: Negative. Electronically Signed: Noe Ring MD at 8:40 EDT ,
--- NOTE | 2023-03-30 08:10 | EX.ED.UPPERE ---
HPI History of Present Illness Chief Complaint: Upper Extremity Injury Detail of Chief Complaint: Right shoulder pain Informant: patient Onset/Context/Timing Onset: Yesterday Narrative Narrative: Patient presents secondary to right shoulder pain. He states he felt a popping sensation yesterday when he was helping to move a washer. He is left-hand dominant. No paresthesias. PFSH PFS Medical History History of Clostridium difficile infection Home Medications vancomycin 125 mg capsule (Vancocin) 125 mg PO Q6H #4 caps 02/13/22 [Rx Last Taken Unknown] ondansetron 4 mg disintegrating tablet 4 mg PO Q6H PRN nausea and vomiting #10 tabs 02/28/22 [Rx Last Taken Unknown] naproxen 500 mg tablet (Naprosyn) 500 mg PO BID PRN pain #20 tabs 03/30/23 [Rx Last Taken Unknown] Allergy/AdvReac Type Severity Reaction Status Date / Time No Known Allergies Allergy Verified 03/30/23 08:02 Surgical History History of repair of congenital cleft palate History of tympanoplasty Social History Smoking Status: Current every day smoker tobacco type: cigarettes ROS ROS ED Constitutional Constitutional ED: Denies chills or fever(s) Eyes Eyes: Denies discharge from eye(s) ENT ENT ED: Denies discharge from eye(s) Cardiovascular Cardiovascular: Denies chest pain Respiratory/Chest Respiratory/Chest: Denies cough or dyspnea Gastrointestinal Gastrointestinal: Denies abdominal pain, nausea or vomiting Musculoskeletal Musculoskeletal: Reports extremity pain Integumentary Denies Abrasions or rash Neurologic Neurologic: Denies paresthesias Psychiatric Psychiatric: Denies anxiety or depression Allergic/Immunologic Allergic/Immunologic ED: Denies lip swelling or urticaria EXAM Physical Exam Const Vital Signs: 03/30/23 08:02 Temperature 97.2 F L Temperature Source Temporal Pulse Rate 87 Respiratory Rate 16 Blood Pressure 147/94 H Blood Pressure Mean 111 Pulse Ox 100 Oxygen Delivery Method Room Air Positive well nourished and well developed General Appearance ED: well developed HEENT Reports moist mucous membranes Chest Wall inspection of chest normal and palpation of chest normal Resp clear to auscultation bilaterally Cardio regular rate and regular rhythm GI non-tender Palpation: soft Extremity Extremity Narrative: Mild tenderness to palpation over the proximal humerus laterally. No evidence of dislocation or fracture. No tenderness along the clavicle or scapula. Strong distal pulses. No tenderness at the elbow or wrist. Normal sensation throughout on testing. Neuro oriented x3 Skin Lesions: no lesions Rashes: no rashes MDM MDM MDM Narrative Medical decision making narrative: Patient given naproxen for pain along with an ice pack. Right shoulder x-rays obtained to evaluate for fracture, dislocation. Radiography Diagnostic Testing: Radiology Impression Shoulder X-Ray 03/30/23 08:10 IMPRESSION: Negative. Electronically Signed: Noe Ring MD at 8:40 EDT , Treatment and Re-Evaluation Narrative: Right shoulder x-ray per my interpretation reveals no evidence of fracture or dislocation. Radiology interpretation is reviewed and agrees. Patient is tender along the lateral proximal humerus where a lot of muscles insert onto the humeral head. He may have strained 1 of these tendons. Patient be given a sling and was instructed to come out of the sling at least 3 times a day to work on range of motion. He will begin a prescription for naproxen. He is referred to orthopedics for follow-up if not improving. Discharge Plan Triage Chief Complaint: Upper Extremity Injury ED Provider: Sherrill Roman Dx/Rx/DC Orders Clinical Impression: Sprain of right shoulder Instructions: ED Shoulder Sprain Prescriptions: New naproxen [Naprosyn] 500 mg tablet 500 mg PO BID PRN (Reason: pain) Qty: 20 0RF No Action vancomycin [Vancocin] 125 mg capsule 125 mg PO Q6H Qty: 4 0RF ondansetron 4 mg tablet,disintegrating 4 mg PO Q6H PRN (Reason: nausea and vomiting) Qty: 10 0RF Primary Care Provider: Care Physician,No Primary Referrals: Jaylen Hoyt MD [Non-Staff] - Gato Olguin MD [Med Staff - Active Staff] - 1 Week if not improving Disposition Disposition: Home, Self Care
[2023-03-30] MEDS: Naproxen 500 MG Tablet PO (08:23)
== END 2023-03-30 08:55 | disposition home or self-care (01) ==
PROVIDERS: Emergency Provider Emergency Medicine; Visit Provider Emergency Medicine
DX: S43.401A Unspecified sprain of right shoulder joint, initial encounter (principal); X58.XXXA Exposure to other specified factors, initial encounter; F17.210 Nicotine dependence, cigarettes, uncomplicated
CPT/HCPCS: 73030; 99283

== ENCOUNTER 2023-04-10 15:40 | Outpatient (RCR) | payer BC, SELFPAY ==
--- NOTE | 2023-04-12 17:02 | HP.PTEVAL_ITS ---
Patient's Visit Information Visit Information Visit Information: DAVID LEVY is a 37 year old M referred to Physical Therapy by Dr. Gato Olguin MD with a diagnosis of R shoulder instability, R shoulder pain. Date of Evaluation: 04/10/23 Physical Therapist: Ed Mckeon DPT Visit Plan Frequency: 2x /Week Duration: 4 Weeks Plan: Start with light shoulder stability exercises in non painful regions. Progress as tolerated. Pt. desires to work on exercises on own at this point in time. Pt. to follow up in a few weeks. Subjective Subjective: Pt. is here today for his initial evaluation with diagnosis of instability of R shoulder, R shoulder pain. Pt. reports doing better than he was last week. Pt. reports he was lifting clothes out of his washing machine and his hand slipped resulting in a force functional ER positioning. He felt a pop and was then having trouble lifting or moving his arm. He went to ER who gave him a sling. He ultimately ended up at ortho. Pt. arrives today without use of sling. He reports weaning out of this over the past few days. 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 He reports sleeping well, but his main issue with with attempting to lift anything. He reports pain at anterior shoulder with activities. He is attempting to get an MRI, arthrogram to determine severity of his injury. Pt. is hopeful to reduce symptoms in order to get back to all reactional and work activities with out limitations. Pain R anterior shoulder: Pain Intensity (Out of 10): 2 Pain Intensity Range: 0 and 5 Objective Objective: POSTURE: Pt. has slight rounded shoulders with R shoulder in slight guarded posture. Normal shoulder heights noted. PALPATION: Pt. has tenderness at anterior shoulder along long head of biceps in bicipital groove as well as anterior shoulder. NEURO: normal sensation and normal DTR of BUEs. ROM: L shoulder full no issues. R shoulder: AROM: flexion 150deg increase NW, abd 140deg increase NW, functional IR L3 increase NW, functional ER C1 increase NW. PROM: flexion 160deg increase NW, abd 160deg increase NW, ER at 90deg 45deg increase NW, IR at 90deg of abd 30deg increase NW. MMT: L shoulder 5/5 throughout. R shoulder: flexion 4+/5 increase NW, abd 4+/5 increase NW, ER 4+/5 NE, IR 4+/5 increas NW, ext 5/5 NE. Special Tests R Shoulder Drop Sign - IS Test: Negative R Shoulder Empty Can - SS: Positive R Shoulder Belly Press - SupScap: Positive R Shoulder Neer - Impingement: Positive R Shoulder Dempsey Tristan - Impingement: Positive R Shoulder Biceps Load Test - Labrum: Positive R Shoulder Speeds Test - Labrum/Biceps: Positive Balance/Special Test Scores Quick DASH Score: 18.1800 Goals Goal 1:: LTG: Pt to be I with HEP for R shoulder stability. Goal Time Frame: 2-4 Weeks Goal 2:: LTG: Pt. to complete all work related activities without increase in symptoms. Goal Time Frame: 4-6 Weeks Goal 3:: LTG: Pt. to have full R shoulder ROM without increase in symptoms. Goal Time Frame: 4-6 Weeks Goal 4:: LTG: Pt. to have 5/5 strength throughout R shoulder and RTC. Goal Time Frame: 4-6 Weeks Rehabilitation Potential Physical Therapy Diagnosis: Pt. has signs and symptoms consistent with R shoulder instability. He is doing a little bit better, but is still having pain with over head motions. He would benefit from PT to work on light strengthening and stability exercises. Rehabilitation Potential: Excellent Anticipated Interventions Patient/Client Instruction: Educate patient on: Condition, Plan of Care, Risk Factors and Benefits of Fitness Program For the Purpose of:: To facilitate caregiver knowledge, To improve self management, To prevent re-injury, To improve ability to perform tasks related to life management and To improve tolerance to ADL's Therapeutic Exercise to Include: Strength training, Endurance training, Postural training, Flexibilty training, Passive ROM, Active ROM, Julio Exercises and Scapular Strength/Stabilization For the Purpose of:: To decrease pain, To increase ROM, To improve nutrient delivery to tissue, To increase oxygenation perfusion, To improve muscle performance and motor function, To improve health of tissue, To decrease soft tissue restriction and To increase flexibility/ROM Text: Thank you for the opportunity to evaluate your patient. For Medicare and Medicare HMO plans, please review the plan of care and approve it. It will need to be FAXED BACK to us at [phone] for Medicare purposes. For Medicare only, by signing this I certify the plan of care. Please let me know if there are questions or concerns regarding this plan of care. Physician Signature: Date:
== END 2023-04-10 19:00 | disposition home or self-care (01) ==
LOC: PT 15:40
PROVIDERS: Referring Provider Orthopaedic Surgery Sports Medicine; Visit Provider Orthopaedic Surgery Sports Medicine
DX: M25.311 Other instability, right shoulder (principal); M25.511 Pain in right shoulder
CPT/HCPCS: 97110; 97161

== ENCOUNTER 2023-12-14 14:37 | Emergency (ER) | payer BC, SELFPAY ==
[2023-12-14 14:39] VITALS: BP 130/88; PULSE 99; RESP 18; TEMP 37; O2SAT 96; BMI 23.1
--- NOTE | 2023-12-14 15:09 | EX.ED.DYSGE1 ---
HPI History of Present Illness Chief Complaint: General Illness Informant: patient Onset/Context/Timing Onset: Today Context: Gradual Onset Timing: Continuous Quality: Pressure Location: Nose Worsened by: Nothing Relieved by: Nothing Narrative Narrative: Patient presents with facial pain and swelling that began today. Patient states he noted some swelling and pain over his nose. Patient states he went to the urgent care and was diagnosed with a facial infection. Patient was given antibiotics. Patient states that he was told that if it felt like it was getting worse he should come to the emergency department. Patient states it felt like it was spreading to his cheeks. Patient denies any fevers or chills. Patient denies any discharge or drainage. [facility] Medical History Instability of right shoulder joint Right shoulder pain History of Clostridium difficile infection Home Medications ?Medication ?Instructions ?Recorded ?Last Taken ?Type doxycycline hyclate 100 mg capsule 100 mg PO BID 12/14/23 Unknown History Allergy/AdvReac Type Severity Reaction Status Date / Time No Known Allergies Allergy Verified 12/14/23 14:38 Family History no significant family his Surgical History History of repair of congenital cleft palate History of tympanoplasty Social History household members: significant other and children Smoking Status: Current every day smoker tobacco type: cigarettes alcohol intake: current alcohol intake frequency: holidays/special occasions only ROS ROS ED Constitutional Constitutional ED: Denies chills or fever(s) Eyes Eyes: Denies blurry vision or change in vision ENT ENT ED: Denies rhinorrhea or sore throat Cardiovascular Cardiovascular: Denies chest pain or palpitations Respiratory/Chest Respiratory/Chest: Denies cough or dyspnea Gastrointestinal Gastrointestinal: Denies nausea or vomiting Genitourinary Genitourinary ED: Denies dysuria or hematuria Musculoskeletal Musculoskeletal: Denies back pain or neck pain Integumentary Denies abscess or rash Neurologic Neurologic: Denies headache(s) or weakness Allergic/Immunologic Allergic/Immunologic ED: Denies mouth swelling or urticaria EXAM Physical Exam Const Vital Signs: 12/14/23 14:39 12/14/23 14:52 Temperature 98.6 F Temperature Source Temporal Pulse Rate 99 Respiratory Rate 18 Respiratory Effort Normal Non-Labored Respiratory Pattern Normal Blood Pressure 130/88 H Blood Pressure Mean 102 Pulse Ox 96 Oxygen Delivery Method Room Air Positive well nourished and well developed General Appearance ED: well developed HEENT Reports normocephalic HEENT Narrative: There is tenderness, erythema, and warmth over the nose. There is no fluctuance. There is no discharge or drainage. There is no evidence of any abscess. There is no septal deviation or septal hematoma noted. There is no epistaxis noted. atraumatic Nose: nares normal, nasal mucous membranes and turbinates normal and external nose abnormal nasal erythema and nasal tenderness Mouth ED: Yes oral and palatal mucosa normal Mouth: oral and palatal mucosa normal Neck full ROM, supple and no JVD Resp normal respiratory effort and clear to auscultation bilaterally Cardio regular rate and regular rhythm Extremity normal to inspection and full ROM Neuro oriented x3, CN's II-XII intact bilaterally, moves all extremities, no focal motor deficits and no sensory deficits noted [place] Coma Scale: document GCS findings Spontaneous Obeys Commands Oriented 15 Sensorium / Orientation: awake and alert Speech: speech normal Psych mental status grossly normal and cooperative MDM MDM MDM Narrative Medical decision making narrative: Differential diagnosis includes facial cellulitis, and erysipelas. CBC will be obtained to assess for leukocytosis and anemia. Basic metabolic profile will be obtained to assess for electrolyte abnormality and renal function. Lab Data Attestation: I reviewed the patient's lab results. Lab results narrative: CBC was reviewed and there is a slight leukocytosis of 11.7. The remainder is within normal limits. Basic metabolic profile was reviewed and was within normal limits. Labs: Laboratory Results - last 24 hr 12/14/23 15:55 WBC 11.7 H RBC 5.01 Hgb 15.3 Hct 45.2 MCV 90.2 MCH 30.5 MCHC 33.8 RDW Std Deviation 38.3 RDW Coeff of Arnold 11.6 Plt Count 182 MPV 9.2 Immature Gran % (Auto) 0.200 Neut % (Auto) 74.6 H Lymph % (Auto) 15.0 L [place] % (Auto) 8.7 Eos % (Auto) 1.3 Baso % (Auto) 0.2 Absolute Neuts (auto) 8.8 H Absolute Lymphs (auto) 1.76 Nucleated RBC % 0 Sodium 138 Potassium 3.6 Chloride 106 Carbon Dioxide 27.0 Anion Gap 5 BUN 15 Creatinine 0.97 Estim Creat Clear Calc 77.13 Est GFR (MDRD) Af Amer 112 Est GFR (MDRD) Non-Af 92 BUN/Creatinine Ratio 15.4 Glucose 102 Calcium 8.8 Treatment and Re-Evaluation :: Patient was given a dose of Unasyn here. Patient was advised of his findings. Patient was instructed to continue doxycycline as prescribed. Patient was instructed to follow-up with his primary care physician in 5 to 7 days. Patient was instructed to return if worse in any way. Patient understood and was agreeable with the plan. All questions were answered. Discharge Plan Triage Chief Complaint: General Illness ED Provider: Pravin Su Dx/Rx/DC Orders Clinical Impression: Cellulitis of face Instructions: ED Cellulitis, Facial Prescriptions: No Action doxycycline hyclate 100 mg capsule 100 mg PO BID Primary Care Provider: Care Physician,No Primary Referrals: Anca Zaman MD [Med Staff - [employer]] - 5-7 Days Care Physician,No Primary [Primary Care Provider] - Print Language: Croatian Disposition Disposition: Home, Self Care
[2023-12-14] MEDS: Ampicillin/Sulbactam 3 GM in 0.9% Normal Saline (100mL MB+) 100 ML IV (16:01)
[2023-12-14 16:03] LABS: Absolute Lymphocyte Count 1.76 X10^3/uL (0.83-4.51); Absolute Neutrophil Count 8.8 X10^3/uL (2.0-7.7); Basophil# 0.02 X10^3/uL; Basophil% 0.2 % (0-1); Eosinophil# 0.15 X10^3/uL; Eosinophils% 1.3 % (0-5); Hematocrit 45.2 % (40-54); Hemoglobin 15.3 g/dL (13.0-16.5); Lymphocyte # 1.76 X10^3/ul (0.83-4.51); Mean Corp Hgb Conc 33.8 g/dL (32-36); Mean Corpuscular Hgb 30.5 pg (27.0-32.0); Mean Corpuscular Volume 90.2 fL (80-94); Mean Platelet Vol. 9.2 fl (6.2-12.0); Monocyte# 1.02 X10^3/uL; Monocyte% 8.7 % (0-10); NRBC Flagged by Analyzer 0 % (0-5); Neutrophil # 8.77 X10^3/uL (2.7-7.7); Neutrophil % 74.6 % (47-70); Platelet Count 182 K/mm3 (150-450); RBC Distribution Width CV 11.6 % (11.6-14.6); RBC Distribution Width SD 38.3 fl (35.1-43.9); Red Blood Count 5.01 M/mm3 (4.6-6.2); White Blood Count 11.7 K/mm3 (4.4-11.0)
[2023-12-14 16:16] LABS: Anion Gap 5 (5-15); BUN 15 mg/dL (7-18); BUN/Creat Ratio 15.4 RATIO (10-20); Calcium,Total 8.8 mg/dL (8.5-10.1); Chloride 106 mmol/L (98-107); Creatinine, Serum 0.97 mg/dL (0.70-1.30); EST Glomerular Filtration Rate 92 mL/min (>60); Est Glom Filt Rate - Afr Amer 112 mL/min (>60); Estimated Creatinine Clearance 77.13 ml/min; Glucose 102 mg/dL (74-106); Potassium 3.6 mmol/L (3.5-5.1); Sodium Level 138 mmol/L (136-145)
== END 2023-12-14 17:32 | disposition home or self-care (01) ==
PROVIDERS: Emergency Provider Emergency Medicine; Visit Provider Emergency Medicine
DX: L03.211 Cellulitis of face (principal); F17.210 Nicotine dependence, cigarettes, uncomplicated
CPT/HCPCS: 80048; 85025; 96365; 99283; J7050; A4216; J0295